=== PATIENT | female | born 1950 | race Two or more races ===

== ENCOUNTER 2020-02-04 12:45 | Inpatient (IN) | payer OTHER ==
[~2020-02-04] VITALS: Ht 162.6 cm; Wt 56.7 kg
[2020-02-04] MEDS ORDERED: COZAAR100 MG PO (13:38)
[2020-02-04] MEDS ORDERED: AMLODIPINE BESY10 MG (13:39)
== END 2020-02-08 18:39 | disposition home or self-care (01) | DRG 177 ==
LOC: ER 12:45 → MEDJ 18:01 → SEC-K 21:21 → MEDJ 23:01
PROVIDERS: ADMIT Internal Medicine; ATTEND Internal Medicine
PROC: BB24ZZZ Computerized Tomography (CT Scan) of Bilateral Lungs (ICD-10-PCS; principal; 2020-02-04)
PROC: 3E0F7GC Introduction of Other Therapeutic Substance into Respiratory Tract, Via Natural or Artificial Opening (ICD-10-PCS; 2020-02-04)
PROC: 8E0ZXY6 Isolation (ICD-10-PCS; 2020-02-04)
PROC: 4A033R1 Measurement of Arterial Saturation, Peripheral, Percutaneous Approach (ICD-10-PCS; 2020-02-04)
DX: U07.1 COVID-19 (principal); J12.89 Other viral pneumonia; I10 Essential (primary) hypertension